=== PATIENT | male | born 1955 | race Two or more races ===

== ENCOUNTER 2021-10-12 06:00 | Day surgery (SDC) | payer OTHER ==
[~2021-10-12 06:00] MED LIST: TOPROL PO
== END 2021-10-12 16:45 | disposition home or self-care (01) ==
LOC: CIR.AMB 06:00
PROVIDERS: ATTEND Specialist
DX: K40.90 Unilateral inguinal hernia, without obstruction or gangrene, not specified as recurrent (principal); G20 Parkinson's disease; I10 Essential (primary) hypertension; Z91.013 Allergy to seafood; Z20.822 Contact with and (suspected) exposure to COVID-19; Z87.891 Personal history of nicotine dependence; E11.9 Type 2 diabetes mellitus without complications